=== PATIENT | female | born 1960 | race Two or more races ===

== ENCOUNTER → 2023-01-03 | Day surgery (SDC) | payer OTHER ==
[~2023-01-03] VITALS: Ht 149.9 cm; Wt 51.7 kg
== END | disposition home or self-care (01) ==
LOC: ADM 12-30 11:45 → CIR.AMB 06:55
PROVIDERS: ATTEND Orthopaedic Surgery Hand Surgery
DX: S62.615B Displaced fracture of proximal phalanx of left ring finger, initial encounter for open fracture (principal); S62.617B Displaced fracture of proximal phalanx of left little finger, initial encounter for open fracture; Z20.822 Contact with and (suspected) exposure to COVID-19; E11.9 Type 2 diabetes mellitus without complications; E78.00 Pure hypercholesterolemia, unspecified; E78.3 Hyperchylomicronemia; I10 Essential (primary) hypertension

== ENCOUNTER 2023-07-18 05:28 | Day surgery (SDC) | payer OTHER ==
[2023-07-12 09:33] LABS: URINE APPEARANCE Clear; URINE BILIRRUBIN Negative (NEGATIVE); URINE BLOOD Negative; URINE COLOR Yellow; URINE GLUCOSE Negative (NEGATIVE); URINE LEUKOCYTE Negative; URINE NITRATE Negative; URINE PROTEIN Negative (NEGATIVE); URINE UROBILINOGEN 0.2 E.U./dl
[2023-07-12 09:37] LABS: URINE EPITHELIAL CELLS 1.6 uL (0.0-38.8); URINE RBC 2.8 uL (0.0-20.8); URINE WBC 2.7 uL (0.0-23.2)
[2023-07-12 09:38] LABS: HEMATOCRIT 40.9 % (36.0-45.00); HEMOGLOBIN 13.9 g/dL (12.0-15.00); MEAN CELL VOLUME 85.3 fL (80.00-100.00); PLATELET COUNT 298 K/uL (150-450); RED CELL DISTRIBUTION WIDTH 14.3 % (11.5-14.5)
[2023-07-12 10:08] LABS: ALBUMIN 3.9 gm/dL (3.4-5.0); BILIRUBIN TOTAL 0.38 mg/dL (0.3-1.2); CALCIUM 9.6 mg/dL (8.5-10.1); CREATININE SERUM 0.76 mg/dL (0.55-1.02); GFR 76.86; GLOBULINA 3.5 G/DL (2.4-3.5); POTASSIUM 4.5 mEq/L (3.5-5.1); TOTAL PROTEIN 7.4 gm/dL (6.4-8.2)
[2023-07-12 10:09] LABS: INR 0.97; PARTIAL THROMBOPLASTIN TIME 23.9 SECONDS (22.0-34.0); PROTHROMBIN TIME 10.2 SECONDS (9.0-11.5)
[~2023-07-18 05:28] MED LIST: PLAQUENIL PO
== END 2023-07-18 11:50 | disposition home or self-care (01) ==
LOC: CIR.AMB 05:28
PROVIDERS: ATTEND Orthopaedic Surgery Hand Surgery
DX: M24.542 Contracture, left hand (principal); E11.9 Type 2 diabetes mellitus without complications; E78.00 Pure hypercholesterolemia, unspecified; Z20.822 Contact with and (suspected) exposure to COVID-19; I10 Essential (primary) hypertension